=== PATIENT | male | born 1955 | race African-American/Black ===

== ENCOUNTER 2017-11-25 02:23 | Inpatient (IN) | payer OTHER ==
[~2017-11-25] VITALS: Ht 180.3 cm; Wt 75.0 kg
[2017-11-25 02:54] LABS: APPEARANCE CLEAR ((CLEAR)); BILIRUBIN NEGATIVE; BLOOD NEGATIVE; COLOR YELLOW ((YELLOW)); GLUCOSE (STRIP) NEGATIVE; KETONES NEGATIVE; LEUKOCYTES NEGATIVE; NITRITE NEGATIVE; PROTEIN (STRIP) 30; SPECIFIC GRAVITY 1.021 (1.000-1.030); UCUL ADDED? NO
[2017-11-25 03:37] LABS: HEMATOCRIT 40.6 % (38.0-50.0); HEMOGLOBIN 13.7 G/DL (12.5-16.6); MCH 27.6 PG (29.0-34.0); MCHC 33.7 G/DL (30.0-36.0); MCV 81.7 FL (86-99); PLATELET COUNT 173 K/uL (156-360); RBC DIS.WIDTH-SD 44.8 % (39-53); RED BLOOD COUNT 4.97 M/uL (4.00-5.50); WHITE BLOOD COUNT 10.2 K/uL (4.1-10.2)
[2017-11-25 03:46] LABS: ALBUMIN 4.2 g/dL (3.2-4.8); CHLORIDE 108 mEq/L (99-109); POTASSIUM 3.8 mEq/L (3.7-5.4); SODIUM 138 mEq/L (136-147)
[2017-11-25 03:49] LABS: GLUCOSE 93 mg/dL (70-99); TOTAL PROTEIN 8.4 g/dL (6.4-8.3)
[2017-11-25 03:50] LABS: TOTAL BILIRUBIN 0.5 mg/dL (0.0-1.0)
[2017-11-25 03:51] LABS: SERUM ETHYL ALCOHOL < 10 mg/dL
[2017-11-25 03:52] LABS: ALKALINE PHOSPHATASE 116 IU/L (3-129)
[2017-11-25 03:53] LABS: UREA NITROGEN (BUN) 11 mg/dL (9-23)
[2017-11-25 03:54] LABS: AST (GOT) 20 IU/L (2-34)
[2017-11-25 03:55] LABS: ALT (GPT) 15 IU/L (3-49)
[2017-11-25 03:56] LABS: GFR ESTIMATE (CALCULATED) > 59 mL/min/ (58.99-99999)
[2017-11-25 04:20] LABS: AMPHETAMINE NEGATIVE (500 ng/mL); BARBITURATES NEGATIVE (200 ng/mL); BENZODIAZEPINES NEGATIVE (150 ng/mL); BUPRENORPHINE PRESUMPTIVE POSITIVE (10 ng/mL); COCAINE PRESUMPTIVE POSITIVE (150 ng/mL); METHADONE NEGATIVE (200 ng/mL); METHAMPHETAMINE NEGATIVE (500 ng/mL); OPIATES (MORPHINE) NEGATIVE (100 ng/mL); OXYCODONE NEGATIVE (100 ng/mL); PHENCYCLIDINE NEGATIVE (25 ng/mL); PROPOXYPHENE NEGATIVE (300 ng/mL); THC CANNABINOIDS NEGATIVE (50 ng/mL); TRICYCLIC ANTIDEPRESSANTS NEGATIVE (300 ng/mL)
[2017-11-25 12:06] VITALS: BP 162/91
[2017-11-25 15:20] VITALS: BP 158/95
[2017-11-26 07:33] VITALS: BP 163/86
[2017-11-26 16:05] VITALS: BP 150/76
[2017-11-27 07:51] VITALS: BP 151/81
[2017-11-27] MEDS ORDERED: ZOLOFT100 MG PO (10:11)
== END 2017-11-27 12:32 | disposition home or self-care (01) | DRG 882 ==
LOC: EME 02:23 → 1WEST 09:45 → EDOF 09:45 → ENRESERV 11:06 → 1WEST 11:50
PROVIDERS: Emergency Medicine
DX: F43.29 Adjustment disorder with other symptoms (principal); R45.851 Suicidal ideations; F14.10 Cocaine abuse, uncomplicated; F11.10 Opioid abuse, uncomplicated; F10.10 Alcohol abuse, uncomplicated; F17.200 Nicotine dependence, unspecified, uncomplicated; Z76.5 Malingerer [conscious simulation]; Z59.0 Homelessness
CPT/HCPCS: 80053; 81003; 84999; 85027; 90837; 97150 GO; 97165 GO; 99281; 99284; G0480; Q0177

== ENCOUNTER 2017-12-27 13:08 | Emergency (ER) | payer OTHER ==
[~2017-12-27] VITALS: Ht 172.7 cm; Wt 97.0 kg
[~2017-12-27 13:08] MED LIST: ZOLOFT100 MG PO
[2017-12-27 14:45] LABS: HEMATOCRIT 45.2 % (38.0-50.0); HEMOGLOBIN 15.2 G/DL (12.5-16.6); MCH 28.2 PG (29.0-34.0); MCHC 33.6 G/DL (30.0-36.0); MCV 83.9 FL (86-99); PLATELET COUNT 191 K/uL (156-360); RBC DIS.WIDTH-CV 15.7 % (11.8-14.6); RED BLOOD COUNT 5.39 M/uL (4.00-5.50); WHITE BLOOD COUNT 6.9 K/uL (4.1-10.2)
[2017-12-27 14:48] LABS: AMPHETAMINE NEGATIVE (500 ng/mL); BENZODIAZEPINES PRESUMPTIVE POSITIVE (150 ng/mL); COCAINE PRESUMPTIVE POSITIVE (150 ng/mL); METHAMPHETAMINE NEGATIVE (500 ng/mL); OPIATES (MORPHINE) NEGATIVE (100 ng/mL); PHENCYCLIDINE NEGATIVE (25 ng/mL); THC CANNABINOIDS PRESUMPTIVE POSITIVE (50 ng/mL)
[2017-12-27 14:49] LABS: BARBITURATES NEGATIVE (200 ng/mL); BUPRENORPHINE PRESUMPTIVE POSITIVE (10 ng/mL); METHADONE NEGATIVE (200 ng/mL); OXYCODONE NEGATIVE (100 ng/mL); PROPOXYPHENE NEGATIVE (300 ng/mL); TRICYCLIC ANTIDEPRESSANTS NEGATIVE (300 ng/mL)
[2017-12-27 14:54] LABS: ALBUMIN 4.2 g/dL (3.2-4.8); CHLORIDE 107 mEq/L (99-109); POTASSIUM 3.9 mEq/L (3.7-5.4); SODIUM 138 mEq/L (136-147)
[2017-12-27 14:56] LABS: GLUCOSE 93 mg/dL (70-99); TOTAL PROTEIN 8.5 g/dL (6.4-8.3)
[2017-12-27 14:58] LABS: TOTAL BILIRUBIN 0.5 mg/dL (0.0-1.0)
[2017-12-27 14:59] LABS: SERUM ETHYL ALCOHOL 42 mg/dL
[2017-12-27 15:00] LABS: ALKALINE PHOSPHATASE 120 IU/L (3-129); CREATININE 1.3 mg/dL (0.6-1.3); GFR ESTIMATE (CALCULATED) > 59 mL/min/ (58.99-99999)
[2017-12-27 15:01] LABS: UREA NITROGEN (BUN) 17 mg/dL (9-23)
[2017-12-27 15:02] LABS: AST (GOT) 22 IU/L (2-34)
[2017-12-27 15:03] LABS: ALT (GPT) 12 IU/L (3-49)
[2017-12-27 15:46] LABS: APPEARANCE SL.HAZY ((CLEAR)); BILIRUBIN SMALL; BLOOD NEGATIVE; COLOR AMBER ((YELLOW)); GLUCOSE (STRIP) NEGATIVE; KETONES NEGATIVE; LEUKOCYTES NEGATIVE; NITRITE NEGATIVE; PROTEIN (STRIP) 30; SPECIFIC GRAVITY 1.026 (1.000-1.030)
[2017-12-27 15:51] LABS: BACTERIA NONE SEEN /HPF; CALCIUM OXALATE CRYSTALS 2+ /HPF; EPITHELIAL CELLS RARE /HPF; MUCUS TRACE /LPF; WHITE BLOOD CELLS 0-5 /HPF (0-5)
[2017-12-27 16:56] LABS: BENZODIAZEPINES, URINE SCREEN POSITIVE (200 ng/mL)
[2017-12-27 17:31] VITALS: BP 139/80
== END 2017-12-27 17:31 | disposition home or self-care (01) ==
LOC: EME 13:08
PROVIDERS: Emergency Medicine
DX: F32.9 Major depressive disorder, single episode, unspecified (principal); F10.20 Alcohol dependence, uncomplicated; Y90.2 Blood alcohol level of 40-59 mg/100 ml; F11.10 Opioid abuse, uncomplicated; F14.10 Cocaine abuse, uncomplicated; M17.12 Unilateral primary osteoarthritis, left knee; F17.200 Nicotine dependence, unspecified, uncomplicated
CPT/HCPCS: 80053; 81003; 84999; 85027; 90839; 99281; 99284; G0480